=== PATIENT | male | born 1965 | race Caucasian/White ===

== ENCOUNTER 2016-06-11 15:25 | Inpatient (IN) | payer MEDICARE, MEDICAID ==
[~2016-06-11] VITALS: Ht 172.7 cm; Wt 88.0 kg
[~2016-06-11 15:25] MED LIST: ANAS1TAB8 PO; ARIP15TA8 PO; BENZ2TAB7 PO; CHOL100044 PO; CLON0.1T PO; DIAZ5TAB4 PO; DIVA500T2 PO; DOCU-270 PO; DOXY100T2 PO; LEVO50TA8 PO; METH5TAB4 PO; PRAS50TA PO; RISP1TAB27 PO; SERT50TA12 PO
[2016-06-11] MEDS ORDERED: Magnesium 1GM/D5W 100ML PREMIX 200 ML IV ONE ×2 (15:39→15:59)
[2016-06-11] MEDS ORDERED: IPRATROPIUM NEB FS 0.5 MG/2.5 ML AMPUL.NEB ONE ×2 (15:43→22:55)
[2016-06-11] MEDS ORDERED: ALBUTEROL FS 2.5 MG/3 ML VIAL.NEB ONE ×4 (15:43→22:55)
[2016-06-11] MEDS ORDERED: METH30CP PO (15:57)
[2016-06-11] MEDS ORDERED: IV SET PRIMARY PUMP SET 1 EA INFUS.SET MC ONE ×2 (15:59→17:55)
[2016-06-11] MEDS ORDERED: DEXAMETHASONE SOD PHOSPHATE 10 MG/ML VIAL ONE (15:59)
[2016-06-11] MEDS ORDERED: ALBUTEROL FS 2.5 MG/3 ML VIAL.NEB CONTNEB ONE ×2 (16:00→16:30)
[2016-06-11] MEDS ORDERED: IPRATROPIUM NEB FS 0.5 MG/2.5 ML AMPUL.NEB NEB ONE (16:00)
[2016-06-11] MEDS ORDERED: DEXAMETHASONE SOD PHOSPHATE 10 MG/ML VIAL IV ONE (16:00)
[2016-06-11 16:04] LABS: ANION GAP 9 (5-14); CALCIUM, SERUM 8.7 mg/dL (8.5-10.1); CARBON DIOXIDE 33 mmol/L (21-32); CHLORIDE 100 mmol/L (98-107); CREATININE 1.2 mg/dL (0.6-1.3); GFR 64 mL/min (>60); GLUCOSE 82 mg/dL (74-106); POTASSIUM 4.2 mmol/L (3.5-5.1); SODIUM SERUM 138 mmol/L (136-145); UREA NITROGEN, BLOOD 16 mg/dL (7-18)
[2016-06-11 16:11] LABS: TROPONIN I < 0.017 ng/mL (0.00-0.056)
[2016-06-11 16:15] LABS: BASOPHILS % (AUTO) 0.2 % (0.0-2.0); DIFF TOTAL % 100 %; EOSINOPHILS % (AUTO) 0.4 % (0.0-6.0); HEMATOCRIT 49 % (39-51); HEMOGLOBIN 16.3 g/dL (13.5-17.5); LYMPHOCYTES % (AUTO) 21.1 % (20.0-44.0); MEAN CORPUSCULAR HEMOGLOBIN 31 PG (26.0-33.0); MEAN CORPUSCULAR HGB CONC 33 g/dl (31.0-36.0); MEAN CORPUSCULAR VOLUME 92 fL (80-96); MONOCYTES # (AUTO) 0.8 /CMM (0.1-1.30); MONOCYTES % (AUTO) 16.3 % (2.0-12.0); NEUTROPHILS # (AUTO) 3.2 /CMM (1.8-8.9); PLATELET COUNT (AUTO) 131 /CMM (150-450); RED BLOOD CELL COUNT(AUTO) 5.33 MIL/uL (4.5-6.0)
[2016-06-11 16:39] LABS: LACTIC ACID 1.4 mmol/L (0.4-2.0)
[2016-06-11] MEDS ORDERED: AZITHROMYCIN 500 MG in IV D5W 250 ML IV ONE (17:30)
[2016-06-11 17:37] LABS: ABG BASE EXCESS 2.1 mmol/L; ABG PCO2 42.9 mmHg (35.0-45.0); ABG PH 7.416 (7.350-7.450); ABG PO2 75.8 mmHg (75.0-100.0); ABG TOTAL HEMOGLOBIN 15.6 G/dL (13.5-18.0); ALLEN TEST Pass; O2Hb 92.7 % (94.0-97.0)
[2016-06-11] MEDS ORDERED: IV NS 0.9% 500 ML IV ONE (17:58)
[2016-06-11] MEDS ORDERED: IV SET PRIMARY 1 EA INFUS.SET MC ONE (17:58)
[2016-06-11] MEDS ORDERED: IV NS 0.9% 500 ML BAG IV ONE (18:00)
[2016-06-11 19:19] LABS: BAND % (MANUAL) 4 % (0.0-5.0); LYMPHOCYTES % (MANUAL) 25 % (16-48)
[2016-06-11 20:00] VITALS: BP 100/58
[2016-06-11] MEDS ORDERED: Z GUARD REMEDY 2 OZ OINT TP PRN (20:30)
[2016-06-11] MEDS ORDERED: HYDROCODONE/APAP 5/325MG 1 EACH TABLET PO PRN (20:30)
[2016-06-11] MEDS ORDERED: MAGNESIUM HYDROXIDE 30 ML UDC PO PRN (20:30)
[2016-06-11] MEDS ORDERED: ONDANSETRON HCL/PF 4 MG/2 ML VIAL IVP PRN (20:30)
[2016-06-11] MEDS ORDERED: MAG HYDROX/AL HYDROX/SIMETH 30 ML UDC PO PRN (20:30)
[2016-06-11] MEDS ORDERED: ACETAMINOPHEN 325 MG TABLET PO PRN (20:30)
[2016-06-11] MEDS ORDERED: ZOLPIDEM TARTRATE 5 MG TABLET PO PRN (20:30)
[2016-06-11] MEDS ORDERED: DIVALPROEX SODIUM 500 MG TABLET.DR PO ONE (21:33)
[2016-06-11] MEDS ORDERED: DIAZEPAM 5 MG TABLET ONE (21:33)
[2016-06-11] MEDS: DIAZEPAM 5 MG TABLET PO SCH (22:27)
[2016-06-11] MEDS: DIVALPROEX SODIUM 500 MG TABLET.DR PO SCH (22:27)
[2016-06-11] MEDS: IPRATROPIUM NEB FS 0.5 MG/2.5 ML AMPUL.NEB NEB SCH (22:59)
[2016-06-11] MEDS: ALBUTEROL FS 2.5 MG/3 ML VIAL.NEB NEB SCH (22:59)
[2016-06-12] VITALS (7 sets, daily range): BP systolic 106–128; BP diastolic 50–85
[2016-06-12] MEDS: IPRATROPIUM NEB FS 0.5 MG/2.5 ML AMPUL.NEB NEB SCH ×6 (02:53→23:22)
[2016-06-12] MEDS: ALBUTEROL FS 2.5 MG/3 ML VIAL.NEB NEB SCH ×6 (02:54→23:22)
[2016-06-12] MEDS ORDERED: IPRATROPIUM NEB FS 0.5 MG/2.5 ML AMPUL.NEB ONE (03:10)
[2016-06-12] MEDS ORDERED: ALBUTEROL FS 2.5 MG/3 ML VIAL.NEB ONE (03:10)
[2016-06-12 07:14] LABS: BASOPHILS % (AUTO) 0.1 % (0.0-2.0); DIFF TOTAL % 100 %; HEMATOCRIT 46 % (39-51); HEMOGLOBIN 15.3 g/dL (13.5-17.5); LYMPHOCYTES # (AUTO) 0.4 /CMM (0.8-4.8); LYMPHOCYTES % (AUTO) 8.9 % (20.0-44.0); MEAN CORPUSCULAR HEMOGLOBIN 31 PG (26.0-33.0); MEAN CORPUSCULAR HGB CONC 33 g/dl (31.0-36.0); MEAN CORPUSCULAR VOLUME 92 fL (80-96); MONOCYTES # (AUTO) 0.3 /CMM (0.1-1.30); MONOCYTES % (AUTO) 5.4 % (2.0-12.0); NEUTROPHILS # (AUTO) 4.2 /CMM (1.8-8.9); NEUTROPHILS % (AUTO) 85.6 % (43.0-81.0); PLATELET COUNT (AUTO) 127 /CMM (150-450); RED BLOOD CELL COUNT(AUTO) 4.97 MIL/uL (4.5-6.0); WHITE BLOOD COUNT (AUTO) 4.9 K/uL (4.3-11.0)
[2016-06-12] MEDS: methylPREDNISolone SOD SUCC 125 MG/2ML VIAL IV SCH (10:27)
[2016-06-12] MEDS: LEVOTHYROXINE SODIUM 50 MCG TABLET PO SCH (10:27)
[2016-06-12] MEDS: PANTOPRAZOLE 40 MG TABLET.DR PO SCH (10:27)
[2016-06-12] MEDS: DOCUSATE SODIUM 100 MG CAPSULE PO SCH ×2 (10:27→17:00)
[2016-06-12] MEDS: CLONIDINE HCL 0.1 MG TABLET PO SCH ×2 (10:28→16:59)
[2016-06-12 10:43] LABS: CALCIUM, SERUM 8.7 mg/dL (8.5-10.1); CREATININE 1.1 mg/dL (0.6-1.3); PHOSPHORUS 2.8 mg/dL (2.5-4.9); POTASSIUM 4.3 mmol/L (3.5-5.1)
[2016-06-12] MEDS ORDERED: DEXTROSE 50%-WATER 50 ML DISP.SYRIN IV PRN (11:30)
[2016-06-12] MEDS: BLOOD SUGAR DIAGNOSTIC 1 EACH STRIP VI SCH ×3 (12:17→21:46)
[2016-06-12] MEDS: INSULIN REGULAR, HUMAN 100 UNIT/ML 3 ML VIAL SQ PRN ×2 (12:48→17:08)
[2016-06-12] MEDS: AZITHROMYCIN 250 MG TABLET PO SCH (16:59)
[2016-06-12] MEDS: SERTRALINE HCL 50 MG TABLET PO SCH (17:53)
[2016-06-12] MEDS: DIAZEPAM 5 MG TABLET PO SCH (21:40)
[2016-06-12] MEDS: DIVALPROEX SODIUM 500 MG TABLET.DR PO SCH (21:40)
[2016-06-12] MEDS: *INSULIN REGULAR(HUMULIN R)HUM 100 UNIT/ML VIAL SQ PRN (21:48)
[2016-06-13] MEDS: IPRATROPIUM NEB FS 0.5 MG/2.5 ML AMPUL.NEB NEB SCH ×6 (03:06→22:44)
[2016-06-13] MEDS: ALBUTEROL FS 2.5 MG/3 ML VIAL.NEB NEB SCH ×6 (03:06→22:44)
[2016-06-13] MEDS: PANTOPRAZOLE 40 MG TABLET.DR PO SCH ×2 (06:42→08:42)
[2016-06-13] MEDS: LEVOTHYROXINE SODIUM 50 MCG TABLET PO SCH ×2 (06:43→08:47)
[2016-06-13] MEDS: BLOOD SUGAR DIAGNOSTIC 1 EACH STRIP VI SCH ×4 (06:45→22:05)
[2016-06-13] MEDS: INSULIN REGULAR, HUMAN 100 UNIT/ML 3 ML VIAL SQ PRN ×2 (06:49→12:40)
[2016-06-13 08:00] VITALS: BP 109/57
[2016-06-13] MEDS: CLONIDINE HCL 0.1 MG TABLET PO SCH ×2 (08:42→16:55)
[2016-06-13] MEDS: methylPREDNISolone SOD SUCC 125 MG/2ML VIAL IV SCH (08:49)
[2016-06-13] MEDS: DOCUSATE SODIUM 100 MG CAPSULE PO SCH ×2 (08:55→16:47)
[2016-06-13 16:00] VITALS: BP 106/62
[2016-06-13] MEDS: SERTRALINE HCL 50 MG TABLET PO SCH (16:47)
[2016-06-13] MEDS: AZITHROMYCIN 250 MG TABLET PO SCH (16:47)
[2016-06-13] MEDS: *INSULIN REGULAR(HUMULIN R)HUM 100 UNIT/ML VIAL SQ PRN ×2 (16:59→22:31)
[2016-06-13 20:00] VITALS: BP_SYST 130; BP_DIAS 62; BP_DIAS 66
[2016-06-13] MEDS: DIAZEPAM 5 MG TABLET PO SCH (22:04)
[2016-06-13] MEDS: ARIPIPRAZOLE 5 MG TABLET PO SCH (22:04)
[2016-06-13] MEDS: DIVALPROEX SODIUM 500 MG TABLET.DR PO SCH (22:04)
[2016-06-14] MEDS: ALBUTEROL FS 2.5 MG/3 ML VIAL.NEB NEB SCH ×6 (03:37→22:58)
[2016-06-14] MEDS: IPRATROPIUM NEB FS 0.5 MG/2.5 ML AMPUL.NEB NEB SCH ×6 (03:38→22:58)
[2016-06-14 06:49] LABS: CALCIUM, SERUM 8.7 mg/dL (8.5-10.1); CREATININE 0.8 mg/dL (0.6-1.3); POTASSIUM 4.5 mmol/L (3.5-5.1)
[2016-06-14 07:03] LABS: BASOPHILS % (AUTO) 0.1 % (0.0-2.0); DIFF TOTAL % 100 %; HEMATOCRIT 46 % (39-51); HEMOGLOBIN 15.1 g/dL (13.5-17.5); LYMPHOCYTES # (AUTO) 1.3 /CMM (0.8-4.8); LYMPHOCYTES % (AUTO) 13.2 % (20.0-44.0); MEAN CORPUSCULAR HEMOGLOBIN 31 PG (26.0-33.0); MEAN CORPUSCULAR HGB CONC 33 g/dl (31.0-36.0); MEAN CORPUSCULAR VOLUME 93 fL (80-96); MONOCYTES # (AUTO) 0.7 /CMM (0.1-1.30); MONOCYTES % (AUTO) 6.9 % (2.0-12.0); NEUTROPHILS # (AUTO) 7.7 /CMM (1.8-8.9); NEUTROPHILS % (AUTO) 79.8 % (43.0-81.0); PLATELET COUNT (AUTO) 177 /CMM (150-450); RED BLOOD CELL COUNT(AUTO) 4.88 MIL/uL (4.5-6.0); WHITE BLOOD COUNT (AUTO) 9.7 K/uL (4.3-11.0)
[2016-06-14] MEDS: CLONIDINE HCL 0.1 MG TABLET PO SCH ×2 (08:45→17:00)
[2016-06-14] MEDS: BLOOD SUGAR DIAGNOSTIC 1 EACH STRIP VI SCH ×4 (08:46→21:32)
[2016-06-14] MEDS: methylPREDNISolone SOD SUCC 125 MG/2ML VIAL IV SCH (08:46)
[2016-06-14] MEDS: DOCUSATE SODIUM 100 MG CAPSULE PO SCH ×2 (08:46→17:54)
[2016-06-14] MEDS: INSULIN REGULAR, HUMAN 100 UNIT/ML 3 ML VIAL SQ PRN ×2 (12:33→17:58)
[2016-06-14 16:00] VITALS: BP 107/58
[2016-06-14] MEDS: predniSONE 10 MG TABLET PO SCH (17:50)
[2016-06-14] MEDS: SERTRALINE HCL 50 MG TABLET PO SCH (17:53)
[2016-06-14] MEDS: AZITHROMYCIN 250 MG TABLET PO SCH (17:54)
[2016-06-14 20:00] VITALS: BP 119/56
[2016-06-14] MEDS: DIAZEPAM 5 MG TABLET PO SCH (21:31)
[2016-06-14] MEDS: ARIPIPRAZOLE 5 MG TABLET PO SCH (21:31)
[2016-06-14] MEDS: DIVALPROEX SODIUM 500 MG TABLET.DR PO SCH (21:31)
[2016-06-14] MEDS: *INSULIN REGULAR(HUMULIN R)HUM 100 UNIT/ML VIAL SQ PRN (21:33)
[2016-06-14 22:00] VITALS: BP 119/56
[2016-06-15] MEDS: ALBUTEROL FS 2.5 MG/3 ML VIAL.NEB NEB SCH ×5 (02:42→20:12)
[2016-06-15] MEDS: IPRATROPIUM NEB FS 0.5 MG/2.5 ML AMPUL.NEB NEB SCH ×5 (02:42→20:12)
[2016-06-15] MEDS: LEVOTHYROXINE SODIUM 50 MCG TABLET PO SCH (06:29)
[2016-06-15] MEDS: PANTOPRAZOLE 40 MG TABLET.DR PO SCH (06:29)
[2016-06-15] MEDS: *INSULIN REGULAR(HUMULIN R)HUM 100 UNIT/ML VIAL SQ PRN ×2 (06:31→21:49)
[2016-06-15] MEDS: BLOOD SUGAR DIAGNOSTIC 1 EACH STRIP VI SCH ×4 (06:32→21:42)
[2016-06-15 08:00] VITALS: BP 125/59
[2016-06-15] MEDS: CLONIDINE HCL 0.1 MG TABLET PO SCH ×2 (09:00→17:00)
[2016-06-15] MEDS: DOCUSATE SODIUM 100 MG CAPSULE PO SCH ×2 (09:31→17:56)
[2016-06-15] MEDS: predniSONE 10 MG TABLET PO SCH (09:31)
[2016-06-15] MEDS: INSULIN REGULAR, HUMAN 100 UNIT/ML 3 ML VIAL SQ PRN ×2 (12:11→17:59)
[2016-06-15 16:00] VITALS: BP 117/69
[2016-06-15] MEDS: SERTRALINE HCL 50 MG TABLET PO SCH (17:56)
[2016-06-15 20:00] VITALS: BP 113/59
[2016-06-15] MEDS: ARIPIPRAZOLE 5 MG TABLET PO SCH (21:13)
[2016-06-15] MEDS: DIVALPROEX SODIUM 500 MG TABLET.DR PO SCH (21:15)
[2016-06-15] MEDS: DIAZEPAM 5 MG TABLET PO SCH (22:03)
[2016-06-16] MEDS: IPRATROPIUM NEB FS 0.5 MG/2.5 ML AMPUL.NEB NEB SCH ×3 (00:07→07:33)
[2016-06-16] MEDS: ALBUTEROL FS 2.5 MG/3 ML VIAL.NEB NEB SCH ×3 (00:07→07:33)
[2016-06-16] MEDS: BLOOD SUGAR DIAGNOSTIC 1 EACH STRIP VI SCH (05:55)
[2016-06-16] MEDS: predniSONE 10 MG TABLET PO SCH (08:35)
[2016-06-16] MEDS: PANTOPRAZOLE 40 MG TABLET.DR PO SCH (08:35)
[2016-06-16] MEDS: DOCUSATE SODIUM 100 MG CAPSULE PO SCH (08:35)
[2016-06-16] MEDS: LEVOTHYROXINE SODIUM 50 MCG TABLET PO SCH (08:35)
[2016-06-16] MEDS: CLONIDINE HCL 0.1 MG TABLET PO SCH (08:58)
== END 2016-06-16 08:50 | DRG 189 ==
LOC: ER 15:28 → TELE 18:37 → MED 06-12 14:51
PROVIDERS: ADMIT Family Medicine; ATTEND Family Medicine
DX: J96.01 Acute respiratory failure with hypoxia (principal); J44.1 Chronic obstructive pulmonary disease with (acute) exacerbation; G04.1 Tropical spastic paraplegia; I10 Essential (primary) hypertension; F31.9 Bipolar disorder, unspecified; F41.9 Anxiety disorder, unspecified; E66.9 Obesity, unspecified; G80.9 Cerebral palsy, unspecified; E03.9 Hypothyroidism, unspecified; E11.9 Type 2 diabetes mellitus without complications; E78.5 Hyperlipidemia, unspecified; I25.10 Atherosclerotic heart disease of native coronary artery without angina pectoris; Z87.730 Personal history of (corrected) cleft lip and palate; Z87.891 Personal history of nicotine dependence; M41.85 Other forms of scoliosis, thoracolumbar region; Z68.29 Body mass index [BMI] 29.0-29.9, adult; J40 Bronchitis, not specified as acute or chronic
CPT/HCPCS: 36415; 36600; 71010-TC; 80048-TC; 80061-TC; 82962-TC; 83605-TC; 83735-TC; 83880; 84100-TC; 84484-TC; 85025-TC; 87040-TC; 87081-TC; 87400; 94799-TC; 97001-TC; A4606; J0456; J1100; J1815; J2930; J3475; J7040; J7060; Z7610

== ENCOUNTER 2016-07-30 12:51 | Inpatient (IN) | payer MEDICARE, MEDICAID ==
[~2016-07-30] VITALS: Ht 160 cm; Wt 90.3 kg
[~2016-07-30 12:51] MED LIST changes: -ANAS1TAB8 PO; -BENZ2TAB7 PO; -CHOL100044 PO; -DOXY100T2 PO; +METH30CP PO; -METH5TAB4 PO; -RISP1TAB27 PO
--- NOTE | 2016-07-30 12:57 | NUR ---
BIB SELF, CC: COUGHING X 3 DAYS, HX OF COPD . AWAITING MD ORDER
--- NOTE | 2016-07-30 13:15 | NUR ---
LAC #20 IV ACCESS BLOOD SAMPLE COLLECTED SENT TO LAB
--- NOTE | 2016-07-30 13:20 | NUR ---
CALLED NURSING SUP. FOR TELE BED
[2016-07-30] MEDS ORDERED: IPRATROPIUM NEB FS 0.5 MG/2.5 ML AMPUL.NEB ONE (13:22)
[2016-07-30] MEDS ORDERED: ALBUTEROL FS 2.5 MG/3 ML VIAL.NEB ONE (13:22)
--- NOTE | 2016-07-30 13:25 | NUR ---
RT AT BEDSIDE FOR BREATHING TX
[2016-07-30] MEDS ORDERED: AZITHROMYCIN 500 MG in IV D5W 250 ML IV ONE (13:30)
[2016-07-30] MEDS ORDERED: CEFTRIAXONE 1GM BAG (ER ONLY) 1 GM/50 ML PIGGYBACK IV ONE (13:30)
[2016-07-30] MEDS ORDERED: ALBUTEROL FS 2.5 MG/3 ML VIAL.NEB NEB ONE (13:30)
[2016-07-30] MEDS ORDERED: ACETAMINOPHEN ES 500 MG TABLET PO ONE (13:30)
[2016-07-30] MEDS ORDERED: IPRATROPIUM NEB FS 0.5 MG/2.5 ML AMPUL.NEB NEB ONE (13:30)
[2016-07-30] MEDS ORDERED: methylPREDNISolone SOD SUCC 125 MG/2ML VIAL IV ONE (13:30)
[2016-07-30] MEDS ORDERED: VANCOMYCIN 1 GM in IV D5W 250 ML IV ONE (13:30)
[2016-07-30] MEDS ORDERED: CEFTRIAXONE 1GM BAG (ER ONLY) 50 ML IV ONE (13:38)
[2016-07-30] MEDS ORDERED: methylPREDNISolone SOD SUCC 125 MG/2ML VIAL ONE (13:38)
[2016-07-30] MEDS ORDERED: IV SET PRIMARY PUMP SET 1 EA INFUS.SET MC ONE ×2 (13:38→16:40)
[2016-07-30] MEDS ORDERED: ACETAMINOPHEN ES 500 MG TABLET ONE (13:38)
[2016-07-30 13:46] LABS: EOSINOPHILS % (AUTO) 0.4 % (0.0-6.0); HEMATOCRIT 51 % (39-51); HEMOGLOBIN 16.9 g/dL (13.5-17.5); LYMPHOCYTES # (AUTO) 0.9 /CMM (0.8-4.8); LYMPHOCYTES % (AUTO) 11.1 % (20.0-44.0); MEAN CORPUSCULAR HEMOGLOBIN 31 PG (26.0-33.0); MEAN CORPUSCULAR HGB CONC 33 g/dl (31.0-36.0); MEAN CORPUSCULAR VOLUME 92 fL (80-96); MONOCYTES # (AUTO) 0.1 /CMM (0.1-1.30); MONOCYTES % (AUTO) 1.5 % (2.0-12.0); PLATELET COUNT (AUTO) 196 /CMM (150-450); RDW COEFFICIENT OF VARIATION 13.8 (11.5-15.0); RED BLOOD CELL COUNT(AUTO) 5.54 MIL/uL (4.5-6.0); WHITE BLOOD COUNT (AUTO) 8.1 K/uL (4.3-11.0)
[2016-07-30 14:07] LABS: TROPONIN I < 0.017 ng/mL (0.00-0.056)
[2016-07-30 14:11] LABS: B-TYPE NATRIURETIC PEPTIDE 115 PG/ML (0-125); CALCIUM, SERUM 9.1 mg/dL (8.5-10.1); CARBON DIOXIDE 35 mmol/L (21-32); CHLORIDE 105 mmol/L (98-107); CREATININE 1.1 mg/dL (0.6-1.3); GFR 70 mL/min (>60); GLUCOSE 164 mg/dL (74-106); POTASSIUM 4.2 mmol/L (3.5-5.1); SODIUM SERUM 146 mmol/L (136-145); UREA NITROGEN, BLOOD 18 mg/dL (7-18)
--- NOTE | 2016-07-30 14:27 | NUR ---
[facility] PAGED, DR.VU TONY WINTER SPORTS MANAGER
[2016-07-30] MEDS ORDERED: HYDR-3326 PO (14:30)
[2016-07-30] MEDS ORDERED: METH20CP19 PO (14:30)
[2016-07-30] MEDS ORDERED: IV 1/2NS 1000 ML 1,000 ML IV PRN (14:35)
--- NOTE | 2016-07-30 14:54 | NUR ---
GAVE REPORT TO IGNACIO RICHEY TELE COPD/PNA. DR TONY ADMITTING. TRANSFER VIA ACLS PROTOCOL.
[2016-07-30] MEDS ORDERED: MAG HYDROX/AL HYDROX/SIMETH 30 ML UDC PO PRN ×2 (15:00→15:15)
[2016-07-30] MEDS ORDERED: ONDANSETRON HCL/PF 4 MG/2 ML VIAL IVP PRN ×2 (15:00→15:15)
[2016-07-30] MEDS ORDERED: LEVOFLOXACIN 500 MG /D5W 100ML 500 MG in PREMIX 1 EA IV SCH (15:00)
[2016-07-30] MEDS ORDERED: Z GUARD REMEDY 2 OZ OINT TP PRN ×2 (15:00→15:15)
[2016-07-30] MEDS ORDERED: ZOLPIDEM TARTRATE 5 MG TABLET PO PRN ×2 (15:00→15:15)
[2016-07-30] MEDS ORDERED: ACETAMINOPHEN 325 MG TABLET PO PRN ×2 (15:00→15:15)
[2016-07-30] MEDS ORDERED: IPRATROPIUM NEB FS 0.5 MG/2.5 ML AMPUL.NEB NEB PRN ×2 (15:00→15:15)
[2016-07-30] MEDS ORDERED: MAGNESIUM HYDROXIDE 30 ML UDC PO PRN ×2 (15:00→15:15)
[2016-07-30] MEDS ORDERED: HYDROCODONE/APAP 5/325MG 1 EACH TABLET PO PRN ×2 (15:00→15:15)
[2016-07-30] MEDS ORDERED: ALBUTEROL FS 2.5 MG/0.5 ML VIAL.NEB NEB PRN (15:00)
[2016-07-30] MEDS ORDERED: ALBUTEROL FS 2.5 MG/3 ML VIAL.NEB NEB PRN (15:15)
--- NOTE | 2016-07-30 15:15 | NUR ---
HYDROGRAPHIC SURVEYOR NOTES RECEIVED PT FROM ER NURSE IN STABLE CONDITION. NO SOB OR SIGNS OF DISTRESS AT THIS TIME. WILL BEGIN ADMISSION PROCESS AND WAIT FOR ORDERS. WILL CONTINUE TO MONITOR.
[2016-07-30 15:45] VITALS: BP 109/64
[2016-07-30 16:00] VITALS: BP 109/64
[2016-07-30] MEDS ORDERED: SECONDARY IV SET 1 EA INFUS.SET MC ONE (16:40)
[2016-07-30] MEDS: CLONIDINE HCL 0.1 MG TABLET PO SCH (16:51)
[2016-07-30] MEDS: methylPREDNISolone SOD SUCC 125 MG/2ML VIAL IV SCH (16:51)
[2016-07-30] MEDS: DOCUSATE SODIUM 100 MG CAPSULE PO SCH (16:52)
[2016-07-30] MEDS: LEVOFLOXACIN 500 MG /D5W 100ML 500 MG in PREMIX 1 EA IV SCH (16:52)
[2016-07-30] MEDS: IV 1/2NS 1000 ML 1,000 ML IV PRN (16:59)
[2016-07-30] MEDS ORDERED: methylPREDNISolone SOD SUCC 125 MG/2ML VIAL IV SCH (17:00)
[2016-07-30] MEDS ORDERED: DOCUSATE SODIUM 100 MG CAPSULE PO SCH (17:00)
[2016-07-30] MEDS ORDERED: CLONIDINE HCL 0.1 MG TABLET PO SCH (17:00)
--- NOTE | 2016-07-30 18:40 | NUR ---
CONSULTING SERVICES MANAGER CLOSING NOTE PT IN STABLE CONDITION. NO SOB OR COMPLAINTS OF CHEST PAIN AT THIS TIME. NO DISTRESS NOTED. IV PATENT AND INTACT RUNNING .45%NS AT 75ML/HR. NO REDNESS OR INFILTRATION NOTED. PT. TOLERATING INFUSION WELL. ON 2L O2 VIA NC. BED IN LOW LOCKED POSITION, SIDE RAILS UP X2, CALL LIGHT WITHIN REACH. ALL ORDERS CARRIED OUT THROUGHOUT SHIFT. WILL ENDORSE TO NIGHTSHIFT NURSE FOR ALMAZ.
[2016-07-30] MEDS ORDERED: IPRATROPIUM NEB FS 0.5 MG/2.5 ML AMPUL.NEB NEB SCH (19:30)
[2016-07-30] MEDS: IPRATROPIUM NEB FS 0.5 MG/2.5 ML AMPUL.NEB NEB SCH (19:30)
[2016-07-30] MEDS: ALBUTEROL FS 2.5 MG/3 ML VIAL.NEB NEB SCH (19:30)
[2016-07-30] MEDS ORDERED: ALBUTEROL FS 2.5 MG/0.5 ML VIAL.NEB NEB SCH (19:30)
--- NOTE | 2016-07-30 19:30 | NUR ---
RN NOTES; RECEIVED PATIENT AWAKE ON BED LYING COMFORTABLY,NO COMPLAINTS OF ANY PAIN OR DISCOMFORT,VERY COOPERATIVE,A/OX4,ON O2 AT 2L/MIN, NO SIGN OF SOB OR RESPIRATORY DISTRESS PER PATIENT HE FELT BETTER NOW,TELE-SINUS RHYTHM RATE-65, SAFETY AND ASPIRATION PRECAUTION OBSERVE,CALL LIGHT WITHIN REACH, BED LOW AND LOCKED.
[2016-07-30 20:00] VITALS: BP 118/71
--- NOTE | 2016-07-30 20:50 | NUR ---
RN NOTES: PATIENT IS COUGHING ON AND OFF WITH SLIGHT SOB, KEPT ON HIGH FOWLERS POSITION; RT INFORMED TO GIVE PRN-HHN FOR SOB. -NEBULIZATION RENDERED BY RT AT 2034. -PATIENT CLAIMED HE FELT BETTER AFTER NEBULIZATION. -KEPT ON CLOSE MONITOR CALL LIGHT WITH IN EASY REACH.
[2016-07-30] MEDS: ARIPIPRAZOLE 5 MG TABLET PO SCH (21:31)
[2016-07-30] MEDS: DIVALPROEX SODIUM 500 MG TABLET.DR PO SCH (21:32)
[2016-07-30] MEDS: DIAZEPAM 5 MG TABLET PO SCH (21:32)
[2016-07-30] MEDS: SERTRALINE HCL 50 MG TABLET PO SCH (21:33)
[2016-07-30] MEDS ORDERED: DIVALPROEX SODIUM 500 MG TABLET.DR PO SCH (22:00)
[2016-07-30] MEDS ORDERED: DIAZEPAM 5 MG TABLET PO SCH (22:00)
[2016-07-30] MEDS ORDERED: SERTRALINE HCL 50 MG TABLET PO SCH (22:00)
[2016-07-31] VITALS (7 sets, daily range): BP systolic 109–121; BP diastolic 62–78
--- NOTE | 2016-07-31 00:07 | NUR ---
RN NOTES: MORNING CARE RENDERED, SPONGE BATH GIVEN,DIAPER CHANGE, KEPT COMFORTABLE IN BED.
[2016-07-31] MEDS: IPRATROPIUM NEB FS 0.5 MG/2.5 ML AMPUL.NEB NEB SCH ×4 (01:43→19:40)
[2016-07-31] MEDS: ALBUTEROL FS 2.5 MG/3 ML VIAL.NEB NEB SCH ×4 (01:43→19:40)
--- NOTE | 2016-07-31 03:31 | NUR ---
RN NOTES; ASLEEP IN THE NIGHT,NO SIGN OF RESPIRATORY DISTRESS NOTED, KEPT ON SEMI FOWLERS POSITION, CALL LIGHT WITHIN EASY REACH, BED LOW AND LOCKED.
--- NOTE | 2016-07-31 06:45 | NUR ---
RN NOTES: ASLEEP IN THE NIGHT,NO SOB NOTED, STILL WITH ON AND OFF COUGH,KEPT ON SEMI FOWLERS POSITION, FALL PRECAUTION OBSERVE, CALL LIGHT WITHIN REACH, ENDORSE TO MORNING SHIFT FOR CONTINUITY OF CARE.
[2016-07-31] MEDS ORDERED: PANTOPRAZOLE 40 MG TABLET.DR PO SCH (07:30)
[2016-07-31] MEDS ORDERED: LEVOTHYROXINE SODIUM 50 MCG TABLET PO SCH (07:30)
--- NOTE | 2016-07-31 07:30 | NUR ---
WASTE EXAMINER NOTES; RECEIVED PATIENT SLEEPING COMFORTABLY ON BED BUT EASILY AROUSABLE ,NO C/O ANY PAIN OR DISCOMFORT,A/OX4,ON O2 AT 2L/MIN, NO SIGNS OF SOB OR RESPIRATORY DISTRESS PER PATIENT HE FELT BETTER NOW,ON TELE MONITORING SR 69,CALL LIGHT WITHIN REACH, BED LOW AND LOCKED FOR SAFETY MEASURES, WILL CONTINUE TO MONITOR.
[2016-07-31] MEDS: LEVOTHYROXINE SODIUM 50 MCG TABLET PO SCH (08:13)
[2016-07-31] MEDS: DOCUSATE SODIUM 100 MG CAPSULE PO SCH ×2 (08:13→16:39)
[2016-07-31] MEDS: CLONIDINE HCL 0.1 MG TABLET PO SCH ×2 (08:14→16:38)
[2016-07-31] MEDS: METHYLPHENIDATE HCL (10MG) 10 MG TABLET PO SCH (08:14)
[2016-07-31] MEDS: PANTOPRAZOLE 40 MG TABLET.DR PO SCH (08:15)
[2016-07-31] MEDS: methylPREDNISolone SOD SUCC 125 MG/2ML VIAL IV SCH ×2 (08:15→16:38)
[2016-07-31] MEDS: IV 1/2NS 1000 ML 1,000 ML IV PRN (13:37)
--- NOTE | 2016-07-31 15:10 | NUR ---
MS RN NOTES C/O GEN BODY PAIN 09/17, NORCO PRN GIVEN ORDERED
[2016-07-31] MEDS: LEVOFLOXACIN 500 MG /D5W 100ML 500 MG in PREMIX 1 EA IV SCH (15:28)
--- NOTE | 2016-07-31 16:54 | NUR ---
MS RN NOTES CATAPRES TAB NOT GIVEN. BP 109/62. WILL CONTINUE TO MONITOR. DENIES ANY DISCOMFORT AT THIS TIME.
--- NOTE | 2016-07-31 19:27 | NUR ---
MS RN NOTES ALL NEEDS ATTENDED AND ANTICIPATED. ENDORSED TO INCOMING SHIFT FOR CONTINUITY OF CARE.
[2016-07-31] MEDS: DIVALPROEX SODIUM 500 MG TABLET.DR PO SCH (21:44)
[2016-07-31] MEDS: SERTRALINE HCL 50 MG TABLET PO SCH (21:46)
[2016-07-31] MEDS: ARIPIPRAZOLE 5 MG TABLET PO SCH (21:47)
[2016-07-31] MEDS: DIAZEPAM 5 MG TABLET PO SCH (21:48)
--- NOTE | 2016-07-31 22:00 | NUR ---
Received patient awake, alert, and oriented. informed him that I'm his assembler 1st shift nurse. Patient was receiving a breathing treatment as per schedule on JUN. Patient had no complaints of shortness of breath, respirations are even and unlabored no signs of distress. No complaints of pain. O2 at 2L per nasal cannula. Flushed right 22g hand saline lock with 20 cc of normal saline, patent and no complaints of pain.
--- NOTE | 2016-08-01 00:34 | NUR ---
PT IN STABLE CONDITION. NO SOB OR COMPLAINTS OF CHEST PAIN AT THIS TIME. NO DISTRESS NOTED. IV PATENT AND INTACT RUNNING .45%NS AT 75ML/HR. NO REDNESS OR INFILTRATION NOTED. PT. TOLERATING INFUSION WELL. ON 2L O2 VIA NC. BED IN LOW LOCKED POSITION, SIDE RAILS UP X2, CALL LIGHT WITHIN REACH. ALL ORDERS CARRIED OUT THROUGHOUT SHIFT.
[2016-08-01] MEDS: ALBUTEROL FS 2.5 MG/3 ML VIAL.NEB NEB SCH ×4 (01:23→19:36)
[2016-08-01] MEDS: IPRATROPIUM NEB FS 0.5 MG/2.5 ML AMPUL.NEB NEB SCH ×4 (01:24→19:36)
--- NOTE | 2016-08-01 07:30 | NUR ---
AM RN NOTE Received patient awake, A/O X4 verbally responsive. Denies any pain or discomfort at this time. IV site intact and patent. Bed in low locked position. Will continue to monitor.
[2016-08-01 08:00] VITALS: BP 124/72
[2016-08-01 08:08] LABS: HEMATOCRIT 47 % (39-51); HEMOGLOBIN 15.3 g/dL (13.5-17.5); MEAN CORPUSCULAR VOLUME 93 fL (80-96); RED BLOOD CELL COUNT(AUTO) 5.06 MIL/uL (4.5-6.0); WHITE BLOOD COUNT (AUTO) 9.6 K/uL (4.3-11.0)
[2016-08-01 08:09] LABS: BASOPHILS % (AUTO) 0.3 % (0.0-2.0); LYMPHOCYTES # (AUTO) 0.8 /CMM (0.8-4.8); LYMPHOCYTES % (AUTO) 8.4 % (20.0-44.0); MEAN CORPUSCULAR HEMOGLOBIN 30 PG (26.0-33.0); MEAN CORPUSCULAR HGB CONC 33 g/dl (31.0-36.0); MONOCYTES # (AUTO) 0.6 /CMM (0.1-1.30); MONOCYTES % (AUTO) 6.3 % (2.0-12.0); NEUTROPHILS # (AUTO) 8.1 /CMM (1.8-8.9); PLATELET COUNT (AUTO) 212 /CMM (150-450); RDW COEFFICIENT OF VARIATION 13.6 (11.5-15.0)
[2016-08-01] MEDS: PANTOPRAZOLE 40 MG TABLET.DR PO SCH (08:12)
[2016-08-01] MEDS: LEVOTHYROXINE SODIUM 50 MCG TABLET PO SCH (08:12)
[2016-08-01] MEDS: methylPREDNISolone SOD SUCC 125 MG/2ML VIAL IV SCH ×2 (08:12→16:47)
[2016-08-01] MEDS: DOCUSATE SODIUM 100 MG CAPSULE PO SCH ×2 (08:12→16:47)
[2016-08-01] MEDS: CLONIDINE HCL 0.1 MG TABLET PO SCH ×2 (08:13→16:48)
[2016-08-01] MEDS: METHYLPHENIDATE HCL (10MG) 10 MG TABLET PO SCH (08:16)
[2016-08-01 08:21] LABS: CALCIUM, SERUM 8.9 mg/dL (8.5-10.1); CREATININE 0.9 mg/dL (0.6-1.3); POTASSIUM 4.3 mmol/L (3.5-5.1)
[2016-08-01 16:00] VITALS: BP_SYST 104; BP_SYST 130; BP_DIAS 65; BP_DIAS 68
[2016-08-01] MEDS: LEVOFLOXACIN 500 MG /D5W 100ML 500 MG in PREMIX 1 EA IV SCH (16:46)
--- NOTE | 2016-08-01 18:12 | NUR ---
AM RN NOTE Patient lying in his bed, denies any pain or discomfort at this time. IV site intact and patent. Bed in low locked position. Will endorse to next shift for ALMAZ.
--- NOTE | 2016-08-01 19:30 | NUR ---
MS RN NOTE: PATIENT RESTING IN BED, NO ACUTE DISTRESS NOTED. BREATHING EVEN AND UNLABORED, NO SOB NOTED AT THIS TIME. IV TO LAC IN PLACE INFUSING 1/2NS AT 75ML/HR. BED LOCKED AND IN LOWEST POSITION. CALL LIGHT IN REACH, WILL CONTINUE TO MONITOR.
[2016-08-01 20:10] VITALS: BP 128/79
[2016-08-01] MEDS: DIVALPROEX SODIUM 500 MG TABLET.DR PO SCH (21:03)
[2016-08-01] MEDS: ARIPIPRAZOLE 5 MG TABLET PO SCH (21:03)
[2016-08-01] MEDS: DIAZEPAM 5 MG TABLET PO SCH (21:04)
[2016-08-01] MEDS: SERTRALINE HCL 50 MG TABLET PO SCH (21:04)
[2016-08-01] MEDS: IV 1/2NS 1000 ML 1,000 ML IV PRN (21:04)
[2016-08-02] MEDS: IPRATROPIUM NEB FS 0.5 MG/2.5 ML AMPUL.NEB NEB SCH ×2 (01:38→08:06)
[2016-08-02] MEDS: ALBUTEROL FS 2.5 MG/3 ML VIAL.NEB NEB SCH ×2 (01:38→08:06)
--- NOTE | 2016-08-02 04:00 | NUR ---
MS RN NOTE: PATIENT SLEEPING IN BED, NO ACUTE DISTRESS NOTED. BREATHING EVEN AND UNLABORED, NO SOB NOTED. PATIENT TO BE DISCHARGED TO [facility], CAMP RECREATION SPECIALIST TIME AT 0800. DISCHARGE PAPERWORK PREPARED AND PRINTED. TO BE SIGNED IN MORNING. WILL CONTINUE TO MONITOR.
--- NOTE | 2016-08-02 06:00 | NUR ---
MS RN NOTE: PATIENT RESTING IN BED, NO ACUTE DISTRESS NOTED. BREATHING EVEN AND UNLABORED, NO SOB NOTED AT THIS TIME. IV TO LAC IN PLACE INFUSING 1/2NS AT 75ML/HR. BED LOCKED AND IN LOWEST POSITION. CALL LIGHT IN REACH, WILL ENDORSE TO DAY NURSE TO CONTINUE WITH PLAN OF CARE.
[2016-08-02] MEDS: PANTOPRAZOLE 40 MG TABLET.DR PO SCH (06:55)
[2016-08-02] MEDS: LEVOTHYROXINE SODIUM 50 MCG TABLET PO SCH (06:55)
--- NOTE | 2016-08-02 07:40 | NUR ---
RN MS OPENING NOTES Received patient in bed, awake, head of bed elevated, no SOB or distress noted. On O2 at 2lpm NC and tolerated well. A/O X 4, verbally responsive and able to make needs known. IV is intact and patent without infiltration. Kept patient clean and comfortable in bed, call light within patient reach, will continue to monitor accordingly.
[2016-08-02 08:00] VITALS: BP 131/77
[2016-08-02] MEDS: DOCUSATE SODIUM 100 MG CAPSULE PO SCH (08:28)
[2016-08-02] MEDS: METHYLPHENIDATE HCL (10MG) 10 MG TABLET PO SCH (08:28)
[2016-08-02 08:29] VITALS: BP 131/77
[2016-08-02] MEDS: CLONIDINE HCL 0.1 MG TABLET PO SCH (08:29)
[2016-08-02] MEDS: methylPREDNISolone SOD SUCC 125 MG/2ML VIAL IV SCH (08:29)
--- NOTE | 2016-08-02 08:54 | NUR ---
ms open hearth furnace operator helper notes Ambulance came to machine operator hop picker the patient going to [facility]. Report called to Paulo RICHEY and instructions given. IV HL on per Paulo she is the one to take care of it. Patient left the hospital via gurney accompanied by 2 EMT in stable condition. No complaint of pain or discomfort noted. No SOB or distress noted. Vital signs checked and recorded. All morning meds given and tolerated well. MD and charge nurse aware.
== END 2016-08-02 08:30 | DRG 189 ==
LOC: ER 12:54 → TELE 15:16 → MED 07-31 13:34
PROVIDERS: ADMIT Family Medicine; ATTEND Family Medicine
DX: J96.21 Acute and chronic respiratory failure with hypoxia (principal); J15.9 Unspecified bacterial pneumonia; J44.1 Chronic obstructive pulmonary disease with (acute) exacerbation; E87.0 Hyperosmolality and hypernatremia; J44.0 Chronic obstructive pulmonary disease with (acute) lower respiratory infection; I25.10 Atherosclerotic heart disease of native coronary artery without angina pectoris; E78.5 Hyperlipidemia, unspecified; F41.9 Anxiety disorder, unspecified; E66.9 Obesity, unspecified; K21.9 Gastro-esophageal reflux disease without esophagitis; G80.9 Cerebral palsy, unspecified; F31.9 Bipolar disorder, unspecified; M41.9 Scoliosis, unspecified; I11.9 Hypertensive heart disease without heart failure; F29 Unspecified psychosis not due to a substance or known physiological condition; Z87.891 Personal history of nicotine dependence; Z87.730 Personal history of (corrected) cleft lip and palate
CPT/HCPCS: 36415; 71010-TC; 80048-TC; 83605-TC; 83880; 84484-TC; 85025-TC; 87040-TC; 87081-TC; 94799-TC; 97001-TC; A4216; A4606; J0456; J0696; J1956; J2930; J3370; J3490; J7060; Z7610

== ENCOUNTER 2016-12-20 02:34 | Inpatient (IN) | payer MEDICARE, MEDICAID ==
[~2016-12-20] VITALS: Ht 160 cm; Wt 88.9 kg
[~2016-12-20 02:34] MED LIST changes: +HYDR-3326 PO; +METH20CP19 PO; -METH30CP PO; -PRAS50TA PO
[2016-12-20 02:50] VITALS: BP 106/64
[2016-12-20] MEDS ORDERED: DEXT10TA7 PO (04:00)
[2016-12-20] MEDS ORDERED: ANAS1TAB PO (04:01)
[2016-12-20] MEDS ORDERED: ARIP15TA2 PO (04:02)
[2016-12-20] MEDS ORDERED: TEST200V3 IM (04:04)
[2016-12-20 08:00] VITALS: BP 122/68
[2016-12-20 08:00] LABS: ALBUMIN 3.6 g/dL (3.4-5.0); BILIRUBIN,TOTAL 0.4 mg/dL (0.2-1.0); CALCIUM, SERUM 9.5 mg/dL (8.5-10.1); POTASSIUM 3.6 mmol/L (3.5-5.1); TOTAL PROTEIN, SERUM 7.3 g/dL (6.4-8.2)
[2016-12-20 16:35] VITALS: BP 116/52
[2016-12-20 20:12] VITALS: BP 108/68
[2016-12-21 08:00] VITALS: BP 122/53
[2016-12-21 16:00] VITALS: BP 108/71
[2016-12-21 20:00] VITALS: BP 125/58
[2016-12-21 20:43] VITALS: BP 125/58
[2016-12-22 08:00] VITALS: BP 133/73
[2016-12-22 16:00] VITALS: BP 127/80
[2016-12-22 20:00] VITALS: BP 108/60
[2016-12-23 08:00] VITALS: BP 105/50
[2016-12-23 16:00] VITALS: BP 120/83
[2016-12-23 20:00] VITALS: BP 107/71
[2016-12-24 08:00] VITALS: BP 110/60
[2016-12-24 15:55] VITALS: BP 129/77
[2016-12-24 20:00] VITALS: BP 109/73
[2016-12-25 08:24] VITALS: BP 143/78
[2016-12-25 16:00] VITALS: BP 108/79
[2016-12-25 19:48] VITALS: BP 113/64
[2016-12-26 08:00] VITALS: BP 116/77
[2016-12-26 16:00] VITALS: BP 143/79
[2016-12-26 20:23] VITALS: BP 117/70
== END 2016-12-26 21:49 | disposition home or self-care (01) | DRG 885 ==
LOC: GPS 02:34
PROVIDERS: ADMIT Psychiatry & Neurology Psychosomatic Medicine; ATTEND Internal Medicine
DX: F25.0 Schizoaffective disorder, bipolar type (principal); F29 Unspecified psychosis not due to a substance or known physiological condition; R45.851 Suicidal ideations; I10 Essential (primary) hypertension; E78.5 Hyperlipidemia, unspecified; E66.9 Obesity, unspecified; G80.9 Cerebral palsy, unspecified; G31.84 Mild cognitive impairment of uncertain or unknown etiology; F31.9 Bipolar disorder, unspecified; G47.30 Sleep apnea, unspecified; J44.9 Chronic obstructive pulmonary disease, unspecified; Z87.891 Personal history of nicotine dependence; Z68.34 Body mass index [BMI] 34.0-34.9, adult; F90.9 Attention-deficit hyperactivity disorder, unspecified type; F10.10 Alcohol abuse, uncomplicated
CPT/HCPCS: 36415; 80048-TC; 80053-TC; 80061-TC; 80164-TC; 87081-TC; Z7610

== ENCOUNTER 2017-09-29 10:19 | Emergency (ER) | payer MEDICARE, MEDICAID ==
[~2017-09-29] VITALS: Ht 165.1 cm; Wt 68.0 kg
[~2017-09-29 10:19] MED LIST changes: +ANAS1TAB50 PO; +ARIP15TA3 PO; +DEXT10TA7 PO; -HYDR-3326 PO; +HYDR-3974 PO; +TEST200V3 IM
--- NOTE | 2017-09-29 10:40 | NUR ---
A/O X4. SPEAKING FULL SENTENCES. VSS. NEG ACUTE DISTRESS. STABLE CONDITION. COUGH, CONGESTION, AND HEADACHE X [address] MEASURES IN PLACE.
[2017-09-29 10:50] LABS: BASOPHILS # (AUTO) 0.2 /CMM (0.0-0.2); BASOPHILS % (AUTO) 2.3 % (0.0-2.0); EOSINOPHILS % (AUTO) 1.1 % (0.0-6.0); HEMATOCRIT 52 % (39-51); HEMOGLOBIN 17.8 g/dL (13.5-17.5); LYMPHOCYTES # (AUTO) 0.9 /CMM (0.8-4.8); LYMPHOCYTES % (AUTO) 10.1 % (20.0-44.0); MEAN CORPUSCULAR HGB CONC 34 g/dl (31.0-36.0); MEAN CORPUSCULAR VOLUME 92 fL (80-96); MONOCYTES # (AUTO) 0.9 /CMM (0.1-1.30); MONOCYTES % (AUTO) 10.1 % (2.0-12.0); NEUTROPHILS # (AUTO) 6.8 /CMM (1.8-8.9); NEUTROPHILS % (AUTO) 76.4 % (43.0-81.0); PLATELET COUNT (AUTO) 156 /CMM (150-450); RDW COEFFICIENT OF VARIATION 12.8 (11.5-15.0); RED BLOOD CELL COUNT(AUTO) 5.67 MIL/uL (4.5-6.0); WHITE BLOOD COUNT (AUTO) 8.9 K/uL (4.3-11.0)
[2017-09-29 11:01] LABS: CALCIUM, SERUM 9.7 mg/dL (8.5-10.1); CARBON DIOXIDE 27 mmol/L (21-32); CHLORIDE 101 mmol/L (98-107); CREATININE 1.1 mg/dL (0.6-1.3); GLUCOSE 93 mg/dL (74-106); POTASSIUM 4.1 mmol/L (3.5-5.1); SODIUM SERUM 136 mmol/L (136-145); UREA NITROGEN, BLOOD 14 mg/dL (7-18)
[2017-09-29 11:08] LABS: TROPONIN I < 0.017 ng/mL (0.00-0.056)
[2017-09-29 11:13] LABS: ALANINE AMINOTRANSFERASE 62 U/L (12-78); ALKALINE PHOSPHATASE 68 U/L (46-116); ASPARTATE AMINOTRANSFERASE 39 U/L (15-37); B-TYPE NATRIURETIC PEPTIDE 17 PG/ML (0-125); BILIRUBIN,DIRECT 0.2 mg/dL (0.0-0.2); BILIRUBIN,TOTAL 0.9 mg/dL (0.2-1.0); TOTAL PROTEIN, SERUM 8.1 g/dL (6.4-8.2)
--- NOTE | 2017-09-29 11:35 | NUR ---
IV removed. Catheter intact and site benign. Pressure and 4x4 applied to site. No bleeding noted.
--- NOTE | 2017-09-29 11:42 | NUR ---
Patient discharged to home in stable condition. Written and verbal after care instructions given. Patient verbalizes understanding of instruction.
[2017-09-29 11:44] VITALS: BP 128/77
== END 2017-09-29 11:48 | disposition home or self-care (01) ==
LOC: ER 10:22
DX: J20.9 Acute bronchitis, unspecified (principal); I10 Essential (primary) hypertension; F17.200 Nicotine dependence, unspecified, uncomplicated; M41.9 Scoliosis, unspecified; M43.20 Fusion of spine, site unspecified; Z88.1 Allergy status to other antibiotic agents; Z96.643 Presence of artificial hip joint, bilateral; G80.8 Other cerebral palsy
CPT/HCPCS: 36415; 71045-TC; 80048-TC; 80076-TC; 83605-TC; 83880; 84484-TC; 85025-TC; 87040-TC; A4606; Z7610

== ENCOUNTER 2018-08-08 10:37 | Emergency (ER) | payer MEDICARE, MEDICAID ==
[~2018-08-08] VITALS: Ht 160 cm; Wt 83.9 kg
--- NOTE | 2018-08-08 10:37 | NUR ---
CAME IN FOR EPIGASTRIC PAIN AND NAUSEA x 2 WEEKS, DENIES VOMITING/DIARRHEA. TO ER BED 1, HOOKED TO MONITOR, CHANGED TO GOWN, PROVIDED W WARM BLANKET, AWAITING MD MAXWELL.
--- NOTE | 2018-08-08 12:04 | NUR ---
EDNA CAVAZOS AT BEDSIDE
[2018-08-08 12:26] LABS: BASOPHILS % (AUTO) 0.4 % (0.0-2.0); EOSINOPHILS % (AUTO) 0.9 % (0.0-6.0); HEMATOCRIT 45 % (39-51); HEMOGLOBIN 15.4 g/dL (13.5-17.5); LYMPHOCYTES # (AUTO) 1.3 /CMM (0.8-4.8); LYMPHOCYTES % (AUTO) 16.7 % (20.0-44.0); MEAN CORPUSCULAR HGB CONC 34 g/dl (31.0-36.0); MEAN CORPUSCULAR VOLUME 98 fL (80-96); MONOCYTES # (AUTO) 0.6 /CMM (0.1-1.30); NEUTROPHILS # (AUTO) 5.6 /CMM (1.8-8.9); PLATELET COUNT (AUTO) 161 /CMM (150-450); WHITE BLOOD COUNT (AUTO) 7.5 K/uL (4.3-11.0)
[2018-08-08] MEDS ORDERED: MORPHINE SULFATE INJ 2 MG/ML DISP.SYRIN IV ONE (12:30)
[2018-08-08] MEDS ORDERED: ONDANSETRON HCL/PF 4 MG/2 ML VIAL IVP ONE (12:30)
[2018-08-08] MEDS ORDERED: MORPHINE SULFATE INJ 4 MG/ML DISP.SYRIN ONE (12:39)
[2018-08-08] MEDS ORDERED: ONDANSETRON HCL/PF 4 MG/2 ML VIAL ONE (12:39)
[2018-08-08 12:52] LABS: ALANINE AMINOTRANSFERASE 32 U/L (12-78); ALBUMIN 3.9 g/dL (3.4-5.0); ALKALINE PHOSPHATASE 74 U/L (46-116); ASPARTATE AMINOTRANSFERASE 29 U/L (15-37); BILIRUBIN,DIRECT 0.1 mg/dL (0.0-0.2); BILIRUBIN,TOTAL 0.6 mg/dL (0.2-1.0); CALCIUM, SERUM 8.8 mg/dL (8.5-10.1); CARBON DIOXIDE 27 mmol/L (21-32); CHLORIDE 106 mmol/L (98-107); CREATININE 0.9 mg/dL (0.6-1.3); GLUCOSE 90 mg/dL (74-106); LIPASE 167 U/L (73-393); POTASSIUM 4.4 mmol/L (3.5-5.1); SODIUM SERUM 142 mmol/L (136-145); TOTAL PROTEIN, SERUM 7.1 g/dL (6.4-8.2); UREA NITROGEN, BLOOD 13 mg/dL (7-18)
--- NOTE | 2018-08-08 13:55 | NUR ---
IV removed. Catheter intact and site benign. Pressure and 4x4 applied to site. No bleeding noted.Patient discharged to home in stable condition. Written and verbal after care instructions given. Patient verbalizes understanding of instruction.
[2018-08-08 13:56] VITALS: BP 128/71
== END 2018-08-08 14:00 | disposition home or self-care (01) ==
LOC: ER 10:43
DX: R10.13 Epigastric pain (principal); I10 Essential (primary) hypertension; J44.9 Chronic obstructive pulmonary disease, unspecified; G82.20 Paraplegia, unspecified; E29.1 Testicular hypofunction; M43.20 Fusion of spine, site unspecified; F17.200 Nicotine dependence, unspecified, uncomplicated; I44.7 Left bundle-branch block, unspecified; Z96.643 Presence of artificial hip joint, bilateral
CPT/HCPCS: 36415; 71045; 80048; 80076; 83690; 83880; 84484; 85025; 93005; 96374; 96375; 99284; J2270; J2405

== ENCOUNTER 2019-05-10 10:25 | Emergency (ER) | payer MEDICARE, OTHER ==
[~2019-05-10] VITALS: Ht 160 cm; Wt 91.6 kg
--- NOTE | 2019-05-10 10:36 | NUR ---
pt to ed bed 02. c/o epigastric pain w/ nausea and vomiting worst since yesterday. pt was a dvised by pmd to go to ed for futher eval for possible infection. stable vitals. awaiting md woodward.
--- NOTE | 2019-05-10 10:46 | NUR ---
dr alexandre at bedside for eval.
[2019-05-10 11:11] LABS: BASOPHILS % (AUTO) 0.3 % (0.0-2.0); EOSINOPHILS % (AUTO) 0.4 % (0.0-6.0); HEMATOCRIT 45 % (39-51); HEMOGLOBIN 15.3 g/dL (13.5-17.5); MEAN CORPUSCULAR HGB CONC 34 g/dl (31.0-36.0); MEAN CORPUSCULAR VOLUME 90 fL (80-96); MONOCYTES # (AUTO) 0.7 /CMM (0.1-1.30); MONOCYTES % (AUTO) 6.7 % (2.0-12.0); NEUTROPHILS # (AUTO) 9.3 /CMM (1.8-8.9); NEUTROPHILS % (AUTO) 83.6 % (43.0-81.0); PLATELET COUNT (AUTO) 141 /CMM (150-450); RED BLOOD CELL COUNT(AUTO) 4.98 MIL/uL (4.5-6.0); WHITE BLOOD COUNT (AUTO) 11.1 K/uL (4.3-11.0)
[2019-05-10 11:18] LABS: POTASSIUM 5.1 mmol/L (3.5-5.1)
[2019-05-10 11:24] LABS: ALBUMIN 3.8 g/dL (3.4-5.0); BILIRUBIN,TOTAL 0.7 mg/dL (0.2-1.0); TOTAL PROTEIN, SERUM 7.7 g/dL (6.4-8.2)
[2019-05-10] MEDS ORDERED: CT SWABBABLE VALVE TRANS SET 1 EA INFUS.SET MC ONE (11:53)
[2019-05-10] MEDS ORDERED: IV NS 0.9% 250 ML IV ONE (11:53)
[2019-05-10] MEDS ORDERED: IOHEXOL-300 100 ML VIAL IV ONE (11:53)
[2019-05-10 12:56] LABS: APPEARANCE,URINE Clear (CLEAR); BILIRUBIN,URINE Negative (NEGATIVE); BLOOD, URINE Negative Ery/uL (NEGATIVE); COLOR,URINE Yellow (YELLOW); KETONES,URINE Negative (NEGATIVE); LEUKOCYTE ESTERASE ,URINE Negative (NEGATIVE); NITRITE, URINE Negative (NEGATIVE); PROTEIN,URINE Negative (NEGATIVE); UGLUCOSE Negative (NEGATIVE); UROBILINOGEN,URINE 0.2 EU/dL (0.2)
[2019-05-10] MEDS ORDERED: MAG HYDROX/AL HYDROX/SIMETH 30 ML UDC PO ONE (13:30)
[2019-05-10] MEDS ORDERED: ONDANSETRON HCL/PF - ER 4 MG/2 ML VIAL IV ONE (13:30)
[2019-05-10] MEDS ORDERED: FAMOTIDINE/PF INJ 20 MG/2 ML VIAL IV ONE ×2 (13:30→13:37)
[2019-05-10] MEDS ORDERED: MAG HYDROX/AL HYDROX/SIMETH 30 ML UDC ONE (13:36)
[2019-05-10] MEDS ORDERED: ONDANSETRON HCL/PF 4 MG/2 ML VIAL ONE (13:37)
--- NOTE | 2019-05-10 14:32 | NUR ---
Patient discharged to home in stable condition. Written and verbal after care instructions given. Patient verbalizes understanding of instruction.IV removed. Catheter intact and site benign. Pressure and 4x4 applied to site. No bleeding noted.
[2019-05-10 14:33] VITALS: BP 130/80
== END 2019-05-10 14:34 | disposition home or self-care (01) ==
LOC: ER 10:26
DX: K52.9 Noninfective gastroenteritis and colitis, unspecified (principal); R11.2 Nausea with vomiting, unspecified; J44.9 Chronic obstructive pulmonary disease, unspecified; I10 Essential (primary) hypertension; F17.200 Nicotine dependence, unspecified, uncomplicated; Z96.643 Presence of artificial hip joint, bilateral; Z98.890 Other specified postprocedural states; Z88.8 Allergy status to other drugs, medicaments and biological substances; Z79.899 Other long term (current) drug therapy
CPT/HCPCS: 36415; 71045; 74177; 80048; 80076; 81001; 83690; 85025; 87040; 96374; 96375; 99284; J2405 ×2; J3490; J7050; Q9967; 81000-TC

== ENCOUNTER 2022-05-06 12:18 | Emergency (ER) | payer MEDICARE, OTHER ==
[~2022-05-06] VITALS: Ht 167.6 cm; Wt 54.4 kg
[~2022-05-06 12:18] MED LIST changes: +ARIP15TA18 PO; -ARIP15TA8 PO
--- NOTE | 2022-05-06 12:29 | NUR ---
/PA AT BEDSIDE FOR EVAL
[2022-05-06 12:30] VITALS: BP 139/94
[2022-05-06] MEDS ORDERED: FLUORESCEIN SODIUM OPHTH 1 EA STRIP ONE (12:46)
[2022-05-06] MEDS ORDERED: TETRACAINE HCL 0.5% OPHTALMIC 15 ML BOTTLE OP ONE (13:00)
[2022-05-06] MEDS ORDERED: FLUORESCEIN SODIUM OPHTH 1 EA STRIP OP ONE (13:00)
--- NOTE | 2022-05-06 13:49 | NUR ---
AT BEDSIDE FOR EYE EXAM W/ SKELTON LAMP
[2022-05-06] MEDS ORDERED: CLOT15CR5 TP (14:15)
[2022-05-06] MEDS ORDERED: MUPI22OI2 TP (14:15)
[2022-05-06] MEDS ORDERED: ERYT3.5O9 RIGHTEYE (14:15)
== END 2022-05-06 14:33 | disposition home or self-care (01) ==
LOC: ER 12:20
DX: H10.31 Unspecified acute conjunctivitis, right eye (principal); B35.6 Tinea cruris; G80.9 Cerebral palsy, unspecified; I10 Essential (primary) hypertension; J44.9 Chronic obstructive pulmonary disease, unspecified; F17.200 Nicotine dependence, unspecified, uncomplicated; Z98.890 Other specified postprocedural states; Z79.899 Other long term (current) drug therapy; Z88.8 Allergy status to other drugs, medicaments and biological substances